=== PATIENT | male | born 1965 | race Caucasian/White ===

== ENCOUNTER 2017-08-20 18:31 | Emergency (ER) | payer MEDICARE, MEDICAID ==
[~2017-08-20] VITALS: Ht 172.7 cm; Wt 109.0 kg
[~2017-08-20 18:31] MED LIST: CEPH500C5 PO; HYDR4TAB55 PO; IBUP-1986 PO; LAMI1TAB40 PO; LOPI1TAB2 PO; TRAZ-146 PO
[2017-08-20] MEDS ORDERED: ALBU18HF2 INH (18:46)
[2017-08-20] MEDS ORDERED: OMEP40CA37 PO (18:46)
[2017-08-20] MEDS ORDERED: DOCU100C41 PO (18:46)
[2017-08-20] MEDS ORDERED: FLUT100D2 INH (18:46)
[2017-08-20] MEDS ORDERED: OXYC-145 PO (18:46)
[2017-08-20] MEDS ORDERED: MULT-1180 (18:46)
[2017-08-20] MEDS ORDERED: ondansetron 4mg rapidly disintigrating tab PO ONE (20:35)
[2017-08-20] MEDS ORDERED: oxyCODONE/APAP 10/325mg tablet PO ONE (20:35)
[2017-08-20] MEDS ORDERED: ONDA4TAB9 PO (20:51)
[2017-08-20] MEDS ORDERED: OXYC-150 PO (20:51)
[2017-08-20 21:08] VITALS: BP 149/107
== END 2017-08-20 21:15 | disposition home or self-care (01) ==
LOC: ER 18:32
DX: M25.551 Pain in right hip (principal); I10 Essential (primary) hypertension; M81.0 Age-related osteoporosis without current pathological fracture; Z86.73 Personal history of transient ischemic attack (TIA), and cerebral infarction without residual deficits; Z88.5 Allergy status to narcotic agent
CPT/HCPCS: 99284

== ENCOUNTER 2018-04-21 22:17 | Emergency (ER) | payer MEDICARE, MEDICAID ==
[~2018-04-21] VITALS: Ht 172.7 cm; Wt 100.0 kg
[~2018-04-21 22:17] MED LIST changes: +ALBU18HF2 INH; -CEPH500C5 PO; +DOCU100C41 PO; +FLUT100D2 INH; -HYDR4TAB55 PO; +MULT-1180; +OMEP40CA37 PO; +OXYC-145 PO; +OXYC-150 PO; -TRAZ-146 PO; +TRAZ-219 PO
[2018-04-21] MEDS ORDERED: propofol 10mg/ml 20ml vial IV ONE (22:55)
[2018-04-22 00:21] VITALS: BP 106/68
== END 2018-04-22 00:38 | disposition home or self-care (01) ==
LOC: ER 22:17
DX: T18.5XXA Foreign body in anus and rectum, initial encounter (principal); R10.84 Generalized abdominal pain; I10 Essential (primary) hypertension; J45.909 Unspecified asthma, uncomplicated; M81.0 Age-related osteoporosis without current pathological fracture; Z86.73 Personal history of transient ischemic attack (TIA), and cerebral infarction without residual deficits; Z98.890 Other specified postprocedural states; Z88.5 Allergy status to narcotic agent; Z79.899 Other long term (current) drug therapy; Y92.89 Other specified places as the place of occurrence of the external cause
CPT/HCPCS: 74018; 99152; 99285; J2704

== ENCOUNTER 2021-12-23 08:34 | Inpatient (IN) | payer MEDICARE, MEDICAID ==
[2021-12-16 14:48] LABS: BASOPHILS % (AUTO) 0.7 % (0-1); EOSINOPHILS # (AUTO) 0.1 X10'3 (0-0.9); LYMPHOCYTES # (AUTO) 2.5 X10'3 (1.1-4.8); MEAN CORPUSCULAR HEMOGLOBIN 29.4 PG (27.0-31.0); MEAN CORPUSCULAR HGB CONC 33.6 g/dL (33.0-36.5); MEAN CORPUSCULAR VOLUME 87.5 FL (78-98); MEAN PLATELET VOLUME 7.4 FL (7.4-10.4); MONOCYTES # (AUTO) 0.7 X10'3 (0-0.9); MONOCYTES % (AUTO) 11.1 % (2-12); NEUTROPHILS # (AUTO) 3.1 X10'3 (1.8-7.7); NEUTROPHILS % (AUTO) 47.2 % (42-75); PRE OP HEMATOCRIT 41.6 % (42.0-52.0); PRE OP PLATELET COUNT 342 X10'3 (140-440); RED BLOOD COUNT 4.75 X10'6 (4.70-6.10); RED CELL DISTRIBUTION WIDTH 13.5 % (11.5-14.5)
[2021-12-16 14:57] LABS: ALBUMIN 4.3 G/DL (3.4-5.0); ALBUMIN/GLOBULIN RATIO 1.1 (1.1-1.5); ALKALINE PHOSPHATASE 65 IU/L (46-116); BLOOD UREA NITROGEN 10 MG/DL (7-18); BUN/CREATININE RATIO 12.3 (5.4-32.0); CALCIUM 9.1 MG/DL (8.5-10.1); CHLORIDE 102 MMOL/L (99-107); CREATININE 0.81 MG/DL (0.60-1.10); PRE OP ALT 36 U/L (30-65); PRE OP ANION GAP 8 (8-16); PRE OP AST 21 U/L (10-37); PRE OP BILIRUB, TOTAL 0.4 MG/DL (0.0-1.0); PRE OP GLUCOSE 107 MG/DL (70-104); PRE OP POTASSIUM 3.6 MMOL/L (3.4-5.1); PRE OP SODIUM 139 MMOL/L (135-145); TOTAL CARBON DIOXIDE 29.1 MMOL/L (24-32); TOTAL PROTEIN 8.3 G/DL (6.4-8.2); eGFR > 90 ML/MIN
[2021-12-23] VITALS (29 sets, daily range): BP systolic 90–147; BP diastolic 60–99
[~2021-12-23] VITALS: Ht 172.7 cm; Wt 107.5 kg
[2021-12-23] MEDS: potassium cl 20mEq in 1/2 NS 1,000 ML IV SCH ×3 (06:40→20:26)
[~2021-12-23 08:34] MED LIST changes: +AMLO10TA13 PO; +BICT1TAB PO; +CITRACAL PO; +DIPH25CA83 PO; +HYDROmorphone inj. 0.5 MG/0.5 ML DISP.SYRIN IV PRN; -IBUP-1986 PO; -LAMI1TAB40 PO; +LISI40TA13 PO; -LOPI1TAB2 PO; +MELA10TA2 PO; +MONT10TA21 PO; -MULT-1180; +MULT-1180 PO; +OMEP40CA21 PO; -OMEP40CA37 PO; +ONDA8TAB13 PO; -OXYC-145 PO; -OXYC-150 PO; +OXYC1TAB17 PO; -TRAZ-219 PO; +acetaminophen 325mg tablet PO ONE; +acetaminophen 325mg tablet PO PRN; +albuterol 2.5 MG/3 ML nebule NEB ONE; +bisacodyl 10mg suppository rectal RC PRN; +ceFAZolin inj. 2,000 MG in dextrose 5%-water 100 ML IV ONE; +celeCOXIB 100mg capsule PO ONE; +diphenhydrAMINE 25mg capsule PO PRN; +famotidine 20mg tablet PO ONE; +gabapentin 300mg capsule PO ONE; +magnesium hydroxide 30ml (MOM) UD suspension PO PRN; +metoclopramide 5 mg/ml inj IV ONE; +naloxone 0.4 mg/ml inj IV PRN; +ondansetron/PF 4mg/2ml inj IV PRN; +oxyCODONE SR 10mg (sust. release) tab -2 tabs (20mg) PO ONE; +oxyCODONE/APAP 10/325mg tablet PO PRN; +ringers solution, lacted 1,000 ML IV SCH; +tranexamic acid inj. 1,000 MG in normal saline IV soln 100ML IV ONE; +vancomycin 1,500 MG in NS 300ml IV soln IV ONE
[2021-12-23] MEDS ORDERED: albuterol 2.5 MG/3 ML nebule NEB PRN (08:35)
--- NOTE | 2021-12-23 10:00 | NUR ---
PT HAS GOOD PEDAL LEFT PEDAL PULSE MARKED WITH SHARPIE. CAP REFILL <3 SEC LEFT FOOT, GOOD CSM IN LEFT LOWER LEG. PT HAS SLIGHT COMPRESSION WRAP TO RIGHT LOWER LEG. PT STATES "IF I DONT HAVE A LITTLE COMPRESSION TO THE LEG, IT FEELS LIKE MY LEG WILL EXPLODE."
[2021-12-23] MEDS ORDERED: proCHLORperazine 10 MG/2 ml inj IV PRN (10:05)
[2021-12-23] MEDS ORDERED: ringers solution, lacted 1,000 ML IV SCH (10:05)
[2021-12-23] MEDS ORDERED: ondansetron/PF 4mg/2ml inj IV PRN (10:05)
[2021-12-23] MEDS ORDERED: meperidine/PF 25mg/ml syringe IV PRN ×2 (10:05)
[2021-12-23] MEDS ORDERED: epiNEPHrine 1 mg/ml inj ONE (10:20)
[2021-12-23] MEDS ORDERED: vancomycin 1,000mg inj ONE (10:20)
[2021-12-23] MEDS ORDERED: ketorolac trometh. 30mg/ml inj. ONE (10:20)
[2021-12-23] MEDS ORDERED: cloNIDine hcl/PF 100mcg/ml inj ONE (10:20)
[2021-12-23] MEDS ORDERED: ROPIVAcaine 0.5% (5mg/ml) 30ml vial ONE (10:21)
[2021-12-23] MEDS ORDERED: pantoprazole 40mg Tablet.DR PO PRN (10:30)
[2021-12-23] MEDS ORDERED: MIDAZolam 1mg/ml 10ml vial ONE (10:51)
[2021-12-23] MEDS ORDERED: fentaNYL/PF 50MCG/1 ML 2ML syringe ONE (10:51)
[2021-12-23] MEDS ORDERED: diphenhydrAMINE 50 mg/ml inj ONE (10:55)
[2021-12-23] MEDS ORDERED: BUPIVAcaine/PF 7.5mg/ml (0.75%) 10ml vial ONE (11:41)
[2021-12-23] MEDS ORDERED: propofol inj 20 ML IV ONE (11:41)
[2021-12-23] MEDS ORDERED: LIDOcaine 1%/PF 5ML 10 MG/ML VIAL ONE (11:41)
--- NOTE | 2021-12-23 12:46 | NUR ---
Received from OR via HOSPITAL BED, accompanied by Anesthesiologist and report given by JEREMIE Anesthesiologist. PT WAKING UP. VSS. PT PRESENTS WITH PIV 20G LEFT FOREARM, HIP DRESSING C/D/I WITH KNEE IMMOBILIZER AND JULIO CÉSAR DRESSING, LEFT DISTAL PULSES NOTED. Addendum: 12/23/21 at 1253 by Yimi Medina RN Amended: Links added.
[2021-12-23] MEDS: meperidine/PF 25mg/ml syringe IV PRN ×2 (14:51→15:27)
[2021-12-23] MEDS ORDERED: tranexamic acid inj. 1,000 MG in normal saline 100ml IV soln 90 ML IV ONE (15:15)
[2021-12-23] MEDS ORDERED: HYDROmorphone/PF 0.2 MG/ML SYRINGE IV PRN ×2 (15:35)
--- NOTE | 2021-12-23 15:46 | NUR ---
PATIENT HAS MET ALL CRITERIA FOR TRANSFER TO ORTHO FLOOR. VSS. DRESSINGS INTACT. BED LOW, CALL LIGHT PRESENT AND 2 RAILS UP. RN PRESENT TO ACCEPT CARE OF PATIENT AND REPORT HAS BEEN CALLED. ALL QUESTIONS ANSWERED TO ACCEPTING RN. Addendum: 12/23/21 at 1600 by Yimi Medina RN Amended: Links added.
[2021-12-23] MEDS: cefazolin/dext.iso 2gm/100ml 100 ML IV SCH (16:56)
[2021-12-23] MEDS: oxyCODONE/APAP 10/325mg tablet PO PRN ×2 (18:03→22:17)
[2021-12-23] MEDS: budesonide 0.5mg/2ml UD nebule IH SCH (19:58)
[2021-12-23] MEDS: ascorbic acid 500mg tablet PO SCH (20:26)
[2021-12-23] MEDS: sennosides 8.6mg tablet PO SCH (20:27)
[2021-12-23] MEDS: HYDROmorphone 1 mg/ml syringe IV PRN (20:30)
[2021-12-23] MEDS: Melatonin 3mg tablet PO SCH (20:59)
[2021-12-23] MEDS: gabapentin 300mg capsule PO SCH (20:59)
[2021-12-23] MEDS ORDERED: VANCOMYCIN 1,500MG inj. 1,500 MG in normal saline 500ml IV soln 300 ML IV ONE (22:00)
[2021-12-24] MEDS: HYDROmorphone 1 mg/ml syringe IV PRN ×5 (01:00→21:46)
[2021-12-24] MEDS: cefazolin/dext.iso 2gm/100ml 100 ML IV SCH (01:01)
[2021-12-24] MEDS: oxyCODONE/APAP 10/325mg tablet PO PRN ×5 (04:15→23:14)
[2021-12-24 05:53] LABS: BASOPHILS % (AUTO) 0.6 % (0-1); EOSINOPHILS # (AUTO) 0.2 X10'3 (0-0.9); EOSINOPHILS % (AUTO) 2.3 % (0-6); HEMOGLOBIN 11.8 g/dl (14.0-17.9); LYMPHOCYTES # (AUTO) 1.5 X10'3 (1.1-4.8); LYMPHOCYTES % (AUTO) 21.2 % (21-51); MEAN CORPUSCULAR HEMOGLOBIN 29.6 PG (27.0-31.0); MEAN CORPUSCULAR HGB CONC 33.8 g/dL (33.0-36.5); MEAN CORPUSCULAR VOLUME 87.6 FL (78-98); MEAN PLATELET VOLUME 7.4 FL (7.4-10.4); MONOCYTES # (AUTO) 0.9 X10'3 (0-0.9); MONOCYTES % (AUTO) 12.5 % (2-12); NEUTROPHILS # (AUTO) 4.6 X10'3 (1.8-7.7); NEUTROPHILS % (AUTO) 63.4 % (42-75); PLATELET COUNT 242 X10'3 (140-440); RED BLOOD COUNT 3.99 X10'6 (4.70-6.10); RED CELL DISTRIBUTION WIDTH 13.6 % (11.5-14.5); WHITE BLOOD COUNT 7.2 X10'3 (4.5-11.0)
[2021-12-24 06:00] VITALS: BP 138/84
[2021-12-24 06:06] LABS: ANION GAP 5 (8-16); CHLORIDE 103 MMOL/L (99-107); POTASSIUM 3.8 MMOL/L (3.5-5.1); SODIUM 136 MMOL/L (135-145)
[2021-12-24] MEDS: potassium cl 20mEq in 1/2 NS 1,000 ML IV SCH ×3 (06:40→20:59)
[2021-12-24] MEDS: montelukast 10mg tablet PO SCH (07:57)
[2021-12-24] MEDS: lisinopril 20mg tablet PO SCH (07:57)
[2021-12-24] MEDS: multivitamins, therapeutics tablet PO SCH (07:57)
[2021-12-24] MEDS: ascorbic acid 500mg tablet PO SCH ×2 (07:57→19:19)
[2021-12-24] MEDS: aspirin 325mg tablet PO SCH (07:58)
[2021-12-24] MEDS: amLODIPine 5mg tablet PO SCH (07:58)
[2021-12-24] MEDS: gabapentin 300mg capsule PO SCH ×3 (07:58→21:00)
[2021-12-24] MEDS: [UNRECOGNIZED DRUG - OTHER] PO SCH (07:59)
[2021-12-24] MEDS: budesonide 0.5mg/2ml UD nebule IH SCH ×2 (09:00→19:27)
[2021-12-24 10:00] VITALS: BP 113/72
--- NOTE | 2021-12-24 11:05 | NUR ---
Noted pt s/p left YOUNG. Pt seen at bedside for written and verbal protein education. Pt states he has protein drinks at home in preparation for post-op nutritional care. Pt endorses a good appetite though states PO intake is lower at this time d/t pain. Pt denies food allergies or food preferences at this time. Pt reports some difficulty chewing and swallowing r/t teeth breaking and prior surgery however states he just needs to chew thoroughly and that it's improving and denies texture modification. Pt provided with RD contact information and encouraged to reach out if needed. Will remain available. Addendum: 12/24/21 at [address] Amended: Links added.
[2021-12-24 18:20] VITALS: BP 111/68
[2021-12-24] MEDS: sennosides 8.6mg tablet PO SCH (19:19)
[2021-12-24] MEDS: Melatonin 3mg tablet PO SCH (19:19)
[2021-12-24] MEDS: celeCOXIB 100mg capsule PO SCH (19:20)
[2021-12-24 22:00] VITALS: BP 112/83
[2021-12-25] MEDS: oxyCODONE/APAP 10/325mg tablet PO PRN ×2 (03:55→07:36)
[2021-12-25 06:00] VITALS: BP 107/72
[2021-12-25 06:15] LABS: BASOPHILS % (AUTO) 0.3 % (0-1); EOSINOPHILS # (AUTO) 0.2 X10'3 (0-0.9); EOSINOPHILS % (AUTO) 1.9 % (0-6); HEMATOCRIT 34.1 % (42.0-52.0); HEMOGLOBIN 11.9 g/dl (14.0-17.9); LYMPHOCYTES # (AUTO) 1.4 X10'3 (1.1-4.8); LYMPHOCYTES % (AUTO) 14.7 % (21-51); MEAN CORPUSCULAR HEMOGLOBIN 30.4 PG (27.0-31.0); MEAN CORPUSCULAR HGB CONC 34.8 g/dL (33.0-36.5); MEAN CORPUSCULAR VOLUME 87.5 FL (78-98); MEAN PLATELET VOLUME 7.4 FL (7.4-10.4); MONOCYTES # (AUTO) 1.3 X10'3 (0-0.9); MONOCYTES % (AUTO) 14.6 % (2-12); NEUTROPHILS # (AUTO) 6.3 X10'3 (1.8-7.7); NEUTROPHILS % (AUTO) 68.5 % (42-75); PLATELET COUNT 239 X10'3 (140-440); RED CELL DISTRIBUTION WIDTH 13.2 % (11.5-14.5); WHITE BLOOD COUNT 9.2 X10'3 (4.5-11.0)
[2021-12-25] MEDS: multivitamins, therapeutics tablet PO SCH (07:35)
[2021-12-25] MEDS: lisinopril 20mg tablet PO SCH (07:35)
[2021-12-25] MEDS: ascorbic acid 500mg tablet PO SCH (07:35)
[2021-12-25] MEDS: celeCOXIB 100mg capsule PO SCH (07:35)
[2021-12-25 07:36] VITALS: BP_SYST 107
[2021-12-25] MEDS: amLODIPine 5mg tablet PO SCH (07:36)
[2021-12-25] MEDS: aspirin 325mg tablet PO SCH (07:36)
[2021-12-25] MEDS: montelukast 10mg tablet PO SCH (07:36)
[2021-12-25] MEDS: [UNRECOGNIZED DRUG - OTHER] PO SCH (07:39)
[2021-12-25] MEDS: gabapentin 300mg capsule PO SCH (07:44)
[2021-12-25] MEDS: budesonide 0.5mg/2ml UD nebule IH SCH (09:00)
== END 2021-12-25 09:40 | disposition home or self-care (01) | DRG 470 ==
LOC: PAS IN 08:34 → EDSTATUS 11:15 → ORTHO 4S 15:50
PROVIDERS: ADMIT Orthopaedic Surgery; ATTEND Orthopaedic Surgery
PROC: 0SRB06Z Replacement of Left Hip Joint with Oxidized Zirconium on Polyethylene Synthetic Substitute, Open Approach (ICD-10-PCS; principal; 2021-12-23 10:55)
DX: M16.12 Unilateral primary osteoarthritis, left hip (principal); Z79.82 Long term (current) use of aspirin
CPT/HCPCS: 36415; 71046; 72170; 80051; 80053; 82948; 85025; 86885; 86900; 86901; 87081; 87811; 94760; 97110; 97116; 97161; 97530; A4215; A4615; A7000; C1776; G0378; J0171; J0690; J0735; J1170; J1200; J1885; J2175; J2250; J2405; J2704; J2765; J2795; J3010; J3370; J3480; J3490; J7040; J7060; J7120; Q0163

== ENCOUNTER 2025-01-11 06:35 | Emergency (ER) | payer MEDICARE, MEDICAID ==
[~2025-01-11] VITALS: Ht 172.7 cm; Wt 104.5 kg
[~2025-01-11 06:35] MED LIST changes: -HYDROmorphone inj. 0.5 MG/0.5 ML DISP.SYRIN IV PRN; -LISI40TA13 PO; +LISI40TA20 PO; +MONT-47 PO; -MONT10TA21 PO; +ONDA-245 PO; -ONDA8TAB13 PO; -acetaminophen 325mg tablet PO ONE; -acetaminophen 325mg tablet PO PRN; -albuterol 2.5 MG/3 ML nebule NEB ONE; -bisacodyl 10mg suppository rectal RC PRN; -ceFAZolin inj. 2,000 MG in dextrose 5%-water 100 ML IV ONE; -celeCOXIB 100mg capsule PO ONE; -diphenhydrAMINE 25mg capsule PO PRN; -famotidine 20mg tablet PO ONE; -gabapentin 300mg capsule PO ONE; -magnesium hydroxide 30ml (MOM) UD suspension PO PRN; -metoclopramide 5 mg/ml inj IV ONE; -naloxone 0.4 mg/ml inj IV PRN; -ondansetron/PF 4mg/2ml inj IV PRN; -oxyCODONE SR 10mg (sust. release) tab -2 tabs (20mg) PO ONE; -oxyCODONE/APAP 10/325mg tablet PO PRN; -ringers solution, lacted 1,000 ML IV SCH; -tranexamic acid inj. 1,000 MG in normal saline IV soln 100ML IV ONE; -vancomycin 1,500 MG in NS 300ml IV soln IV ONE
[2025-01-11 06:36] VITALS: TEMP 98.6
--- NOTE | 2025-01-11 06:57 | Physician Documentation ---
History of Present Illness General Chief Complaint: Back Pain Stated Complaint: BODY PAIN,FALL Time Seen by MD: 06:56 Primary Medical Doctor: [facility] History of Present Illness Initial Comments 59-year-old male complains of back pain neck pain and chest wall pain as well as abdominal pain. Patient states he fell on Thursday feels like he passed out. The patient states his pain was [id number] and then significantly worsened with the last night. Patient states the pain is the worst most likely in his back in his neck. The patient states his pain is severe. Patient denies any weakness numbness or bowel or bladder incontinence. Patient states he took two of his oxycodone 5 mg last night with little relief. He states he has had cervical fusions and multiple fractures in the past. Medication Reconciliation Allergies: Coded Allergies: No Known Drug Allergies (Verified Allergy, Unknown, 12/23/21) morphine (Unverified Adverse Reaction, Unknown, VOMITING, 08/20/17) Scheduled Albuterol Sulfate (Ventolin Hfa), 2 PUFFS INH Q4HPRN, (Reported) Amlodipine Besylate (Amlodipine Besylate), 1 TAB PO DAILY, (Reported) Bictegrav/Emtricit/Tenofov Ala (Biktarvy 50-200-25 mg Tablet), 1 TAB PO DAILY, (Reported) Diphenhydramine HCl (Benadryl), 2 CAP PO HS, (Reported) Docusate Sodium (Docusate Sodium), 2 CAP PO DAILY, (Reported) Fluticasone Propionate (Flovent 100 Mcg Diskus), 1 PUFFS INH Q12H, (Reported) Lisinopril* (Lisinopril*), 1 TAB PO DAILY, (Reported) Melatonin (Melatonin), 1 TAB PO HS, (Reported) Montelukast Sodium (Singulair), 1 TAB PO DAILY, (Reported) Multivitamin/Iron/Folic Acid (Centrum Adults Tablet), 1 TAB PO DAILY, (Reported) [Citracal], 1 TAB PO DAILY, (Reported) Scheduled PRN Cyclobenzaprine* (Cyclobenzaprine*), 1 TAB PO Q8H PRN for pain Omeprazole (Prilosec), 1 CAP PO DAILY PRN for ACID REFLUX, (Reported) Ondansetron 8mg ODT (Ondansetron Odt), 1 TAB PO Q8H PRN for nausea, (Reported) Oxycodone Hcl/Acetaminophen (Oxycodone-Acetaminophen 10-325), 1 TAB PO TID PRN for pain, (Reported) Past Medical History Past Medical History: CVA/TIA/Stroke, Arrhythmia, Hypertension, Asthma, Osteoporosis Past Surgical History: orthopedic surgeries, other Smoking: Non-Smoker Alcohol Use: Rarely Drug Use: none Lives with: Mother Lives In: Home Occupation: disabled Review of Systems All Other Systems at this time: Reviewed and Negative Physical Exam Physical Exam Vital Signs: Temperature: 98.6, Source: Oral, Heart Rate: 63, Respiratory Rate: 18, BP: 160/83, Pulse Oximetry: 98, Weight: 104.550 Physical Exam VITALS: Reviewed and as above. GENERAL: Alert, no apparent distress. HEENT: Normocephalic, atraumatic, PERRL, EOMI, dry mucosa, no erythema RESPIRATORY: Lungs clear, normal breath sounds, no respiratory distress. CHEST: No accessory muscle use, no retractions mild diffuse chest wall tenderness CV: Regular rate, rhythm, no edema, no murmur, No: JVD GI: Soft, non-tender, bowels sounds present, no rebound, guarding, or rigidity BACK: No CVA tenderness, or swelling MUSCULOSKELETAL: No deformities, no edema patient has paraspinal midline tenderness in the thoracic and the lumbar paraspinal muscles no midline tenderness SKIN: Warm and dry, no rash NEURO: Oriented x4, No motor or sensory deficit PSYCH: Normal mood and affect, no agitation Progress Results/Orders Results/Orders Orders - VTANDRZEJ JAIN MD Ct Chest Abdomen Pelvis (01/11/25 08:04) Ct Cervical Spine (01/11/25 08:04) Ultrasound Of Abdomen (01/11/25 08:47) Completed Orders - ANDRZEJ GAN MD Oxycodone/Acetaminophen Tablet (Percocet (01/11/25 07:05) Ketorolac Trometh 15mg/Ml Vial (Toradol (01/11/25 07:05) Orphenadrine Citrate Inj. (Norflex Inj.) (01/11/25 07:05) Ct Chest Abdomen Pelvis (01/11/25 08:04) Ct Cervical Spine (01/11/25 08:04) Stat Ekg (01/11/25 07:45) Cbc/Diff (01/11/25 08:30) CMP (01/11/25 08:30) Hs Troponin I W Calculations (01/11/25 08:30) Ultrasound Of Abdomen (01/11/25 08:47) Vital Signs 01/11/25 01/11/25 01/11/25 01/11/25 06:36 07:11 07:12 07:28 Temp 98.6 Pulse 63 Resp 18 13 20 18 B/P (MAP) 160/83 Pulse Ox 98 01/11/25 01/11/25 01/11/25 01/11/25 07:34 08:22 09:35 10:13 Pulse 61 57 55 60 Resp 18 11 16 14 B/P (MAP) 144/90 (108) 156/97 (116) 143/91 (108) 143/88 Pulse Ox 98 98 96 96 O2 Flow Rate 0 0 Laboratory Tests Test 01/11/25 08:50 White Blood Count 9.7 Red Blood Count 4.63 L Hemoglobin 13.8 L Hematocrit 40.5 L Mean Corpuscular Volume 87.4 Mean Corpuscular Hemoglobin 29.8 Mean Corpuscular Hemoglobin Concent 34.1 Red Cell Distribution Width 14.2 Platelet Count 295 Mean Platelet Volume 7.5 Neutrophils (%) (Auto) 81.5 H Lymphocytes (%) (Auto) 9.9 L Monocytes (%) (Auto) 7.4 Eosinophils (%) (Auto) 0.8 Basophils (%) (Auto) 0.4 Neutrophils # (Auto) 7.9 H Lymphocytes # (Auto) 1.0 L Monocytes # (Auto) 0.7 Eosinophils # (Auto) 0.1 Basophils # (Auto) 0.0 CBC Comment Sodium Level 139 Potassium Level 3.6 Chloride Level 103 Carbon Dioxide Level 25.6 Anion Gap 10 Blood Urea Nitrogen 7 Creatinine 0.71 Estimated GFR/1.73 m2 > 90 BUN/Creatinine Ratio 9.9 L Glucose Level 141 H Calcium Level 8.8 Total Bilirubin 0.3 Aspartate Amino Transf (AST/SGOT) 42 H Alanine Aminotransferase (ALT/SGPT) 92 H Alkaline Phosphatase 65 Troponin I High Sensitivity 17 Total Protein 8.1 Albumin 3.8 Globulin 4.3 Albumin/Globulin Ratio 0.9 L Chemistry Comments Medical Decision Making Additional information obtaine: old records Findings The patient's EKG demonstrates a sinus bradycardia with left bundle-branch block the patient has a normal axis and nonspecific ST abnormalities the impression was an abnormal EKG time of the EKG was 0736 and interpreted at 7:41 a.m. patient is a 59-year-old male complains of upper lumbar lower thoracic back pain he states that he has a syncopal episode proximally four or five days ago and has had increasing pain worse over the last two days that region. The patient is a poor historian he really he is unable to localize where his pain is he has a fairly benign exam the patient did get a CT chest abdomen and pelvis did not demonstrate any significant pathology other than gallstone in the neck of the gallbladder, ultrasound was unremarkable symptoms are consistent with biliary colic and he is not tender over the right upper quadrant on exam particularly or he does not also does not have a Taveras's sign. The patient is on chronic narcotics he has been advised to talk to his provider for possible change in his pain medication the patient was given a prescription for some Flexeril and given a dose of pain medicine orally here in the emergency department prior hospitalizations has been reviewed imaging was reviewed labs were reviewed the pulse oximetry was interpreted as normal and adequate is color television console monitor was interpreted as a bradycardia the patient has also been advised to follow up with Dr. Escobar. Differential Diagnosis Cholecystitis renal colic aortic aneurysm musculoskeletal back pain Departure Time of Disposition: 10:01 Disposition: 01 HOME / SELF CARE / HOMELESS Impression: Primary Impression: Low back pain Qualified Codes: M54.50 - Low back pain, unspecified Discharge Instructions: Acute Back Pain, Adult Additional Instructions: Follow up with Dr. Escobar for your episode of syncope and low heart rate. Follow up with your pain provider for additional narcotics if he need them. You can add Flexeril for pain a prescription has been sent to [facility]. Return for significant worsening of her symptoms Referrals: NO PRIMARY CARE PROVIDER (PCP) MIHAELA ESCOBAR MD Prescriptions Cyclobenzaprine* (Cyclobenzaprine*) 10 Mg Tablet 1 TAB PO Q8H PRN for pain for 10 Days, #30 TAB 0 Refills Prov: ANDRZEJ GAN MD 01/11/25 Signature Scribe Signature: No scribe Attestation: The note accurately reflects work and decisions made by me.Andrzej Gan MD 01/11/25 16:37 ANDRZEJ GAN MD Jan 11, 2025 06:56
[2025-01-11] MEDS: orphenadrine citrate 60mg/2ml inj. IM ONE (07:09)
[2025-01-11] MEDS: ketorolac trometh 15mg/ml vial 15 MG/ML ML IM ONE (07:11)
--- NOTE | 2025-01-11 07:47 | ELECTROCARDIOGRAPH REPORT ---
[facility] Test Date: 2025-01-11 Test Time: 07:36:50 Pat Name: ROBERT DONAHUE Department: EMERGENCY ROOM Room: Gender: M [employer]: LUZ MARINA : 1965 Requested By: ANDRZEJ VELASQUEZ Order Number: [id number] Reading MD: Measurements Intervals [place] Rate: 54 P: 37 VA: 174 QRS: 14 QRSD: 158 T: 194 QT: 444 QTc: 421 Interpretive Statements Sinus bradycardia Left bundle branch block Please click the below link to view image of tracing.
--- NOTE | 2025-01-11 08:31 | RADIOLOGY REPORT ---
Indication: fall Comparison: None Technique: Helical axial scans were performed through the chest, abdomen and pelvis after administration of 100 mL of Omnipaque 300 intravenously. Subsequently, coronal and sagittal reformations were obtained. Dose lowering techniques have been used including automated exposure control and adjustment of mA and/or kv according to patient size. FINDINGS: LUNGS: Scattered atelectasis. No focal consolidation. HILAR, mediastinal and axillary lymph nodes: No enlarged lymph nodes AORTA: Normal in size. HEART: Mild cardiomegaly. Coronary artery calcifications. PLEURA: No pleural effusion or pneumothorax. LIVER: Normal SPLEEN: Normal GALLBLADDER: Cholelithiasis at the gallbladder neck with dilated gallbladder. PANCREAS: Normal ADRENAL GLANDS: Normal KIDNEYS: Normal GI: Normal LYMPH NODES: Normal VASCULAR STRUCTURES: Normal BLADDER: Normal PELVIC ORGAN: Normal FREE AIR OR FREE FLUID: None OSSEOUS STRUCTURES: Multilevel degenerative changes of the spine. Vertebroplasty changes at T11 and L2 vertebral bodies. Multiple chronic appearing mild deformities of the thoracolumbar vertebral bodies within the field of view. No acute fracture. Streak artifact from left hip arthroplasty limiting evaluation of the adjacent structures. SOFT TISSUES: Normal DLP is 2636.9 mGy-cm. CTDI vol is 55 mGy. IMPRESSION: 1. No acute traumatic injury in the chest, abdomen or pelvis. 2. Cholelithiasis at the gallbladder neck with dilated gallbladder. Correlate with right upper quadrant ultrasound if clinically indicated. 3. Multiple chronic appearing mild deformities of the thoracolumbar vertebral bodies. No acute fracture.
--- NOTE | 2025-01-11 08:33 | RADIOLOGY REPORT ---
INDICATION: fall COMPARISON: None TECHNIQUE: Helical axial images through the cervical spine were obtained. Coronal and sagittal images were reconstructed. Dose lowering techniques have been used including automated exposure control and adjustment of mA and/or kv according to patient size. FINDINGS: Straightening of the cervical curvature may be positional. Cervical fixation hardware from C4 through C6. No acute fractures or subluxations are evident. The vertebral body heights are well maintained. Multilevel degenerative changes. DLP is 565 mGy-cm. CTDI vol is 23 mGy. IMPRESSION: 1. No acute fractures or subluxations of the cervical spine.
[2025-01-11 09:02] LABS: MEAN PLATELET VOLUME 7.5 FL (7.4-10.4); RED CELL DISTRIBUTION WIDTH 14.2 % (11.5-14.5)
[2025-01-11 09:23] LABS: CREATININE 0.71 MG/DL (0.60-1.10); TOTAL CARBON DIOXIDE 25.6 MMOL/L (24-32); eCRCL 106 ML/MIN; eGFR > 90 ML/MIN
[2025-01-11] MEDS ORDERED: CYCL-1 PO (09:59)
[2025-01-11 10:13] VITALS: BP 143/88; PULSE 60; RESP 14; O2SAT 96
--- NOTE | 2025-01-11 10:49 | RADIOLOGY REPORT ---
INDICATION: abd pain. TECHNIQUE: Multiple real-time sonographic images of the abdomen were obtained. COMPARISON: CT CT CHEST ABDOMEN PELVIS on DOS: 01/11/25 FINDINGS: The liver is increased in echogenicity. The liver measures 19.2 cm. No intrahepatic biliary ductal dilatation is noted. The gallbladder wall measures 0.3 cm and is unremarkable. There is a gallstone. The common duct measures 0.6 cm and is unremarkable. No pericholecystic fluid is noted. Negative sonographic vega's sign. The right kidney measures 11.4 cm. No hydronephrosis. The pancreas is not well visualized due to obscuration from bowel gas. The visualized portions of the IVC and aorta are grossly unremarkable. IMPRESSION: 1. Cholelithiasis without sonographic evidence of acute cholecystitis. 2. Hepatic steatosis and hepatomegaly.
[2025-01-13] MEDS ORDERED: IBUP-1986 PO (19:30)
[2025-01-13] MEDS ORDERED: LIDO700A47 TOP (19:30)
== END 2025-01-11 10:15 | disposition home or self-care (01) ==
LOC: ER 06:35
DX: M54.50 Low back pain, unspecified (principal); M54.2 Cervicalgia; R07.89 Other chest pain; I10 Essential (primary) hypertension; J45.909 Unspecified asthma, uncomplicated; Z86.73 Personal history of transient ischemic attack (TIA), and cerebral infarction without residual deficits; Z88.5 Allergy status to narcotic agent
CPT/HCPCS: 36415; 71250; 72125; 74176; 76700; 80053; 84484; 85025; 93005; 96372; 99285; J1885; J2360

== ENCOUNTER 2025-01-31 09:41 | Outpatient (CLI) | payer MEDICARE, MEDICAID ==
[~2025-01-31 09:41] MED LIST changes: -CITRACAL PO; +CYCL-1 PO; -DIPH25CA83 PO; -DOCU100C41 PO; -FLUT100D2 INH; +LIDO700A47 TOP; -MELA10TA2 PO; -ONDA-245 PO
[2025-01-31] MEDS ORDERED: iohexol 300mg/ml 100ml inj. ONE (11:09)
--- NOTE | 2025-01-31 12:11 | RADIOLOGY REPORT ---
Exam: CT CT ABDOMEN PELVIS W/ IV ORAL CONTRAST History: ABD PAIN COMPARISON: CT CTA ABDOMEN PELVIS on DOS: 01/13/25, CT CT CHEST ABDOMEN PELVIS on DOS: 01/11/25, PELVIS,LIMITED 1-2 VIEWS on DOS: 12/23/21, PELVIS,LIMITED 1-2 VIEWS on DOS: 12/23/21 Technique: Multidetector spiral CT of the abdomen and pelvis was performed from lung bases to pubic symphysis. Intravenous contrast was administered during this examination. Portal venous imaging was obtained. Axial, coronal and sagittal multiplanar reformats were performed by the technologist on a separate workstation. Radiation Dose : 1. Abdomen/Pelvis: CTDIvol 18.1 mGy, DLP 869.3 mGy*cm. Findings: Lung Bases: Dependent atelectasis. Borderline cardiomegaly. No pleural or pericardial effusion. Liver: The liver is normal in size. No focal lesions. Normal hepatic vascular enhancement. Gallbladder and Biliary Tree: Cholelithiasis. Gallbladder wall thickening. [id number] pericholecystic inflammatory change. Spleen: Unremarkable Pancreas: 1.5 cm cystic lesion of the pancreatic tail. Adrenal Glands: Unremarkable Kidneys: No hydronephrosis. Bladder: Unremarkable Bowel: The stomach is grossly normal in appearance. Small bowel and colon are normal in caliber and distribution. The appendix is not visualized; however, no secondary findings of acute appendicitis identified. Ascites: Absent Lymphadenopathy: No mesenteric, retroperitoneal or periportal lymphadenopathy. Abdominal Wall and Mesentery: Unremarkable. Vasculature: The visualized abdominal aorta is normal in size and caliber. Abdominal and pelvic vessels demonstrate normal enhancement. Pelvic Organs: Unremarkable Musculoskeletal: Multilevel degenerative changes of the spine. Chronic appearing compression deformity of L1. Post kyphoplasty changes at L2 and T11. Left hip arthroplasty. IMPRESSION: Cholelithiasis with gallbladder wall thickening and pericholecystic inflammatory change. 1.5 cm cystic lesion of the pancreatic tail, unchanged Radiation optimization: All CT scans at this facility use at least one of these dose optimization techniques: automated exposure control mA and/or kV adjustment per patient size (includes targeted exams where dose is matched to clinical indication) or iterative reconstruction.
== END 2025-01-31 23:59 | disposition home or self-care (01) ==
LOC: RAD 09:41
PROVIDERS: ATTEND Surgery
DX: Z01.818 Encounter for other preprocedural examination (principal); K80.20 Calculus of gallbladder without cholecystitis without obstruction; R10.9 Unspecified abdominal pain; K86.89 Other specified diseases of pancreas; J98.11 Atelectasis; M47.816 Spondylosis without myelopathy or radiculopathy, lumbar region
CPT/HCPCS: 74177; Q9967